=== PATIENT | female | born 1995 | race Caucasian/White ===

== ENCOUNTER 2019-01-06 02:02 | Emergency (ER) | payer BC ==
[~2019-01-06] VITALS: Ht 162.6 cm; Wt 53.5 kg
[~2019-01-06 02:02] MED LIST: FLEXERIL PO; MEDROLDOSEPACK PO; NORCO 5-325 TA1 EACH PO
[2019-01-06 02:30] VITALS: BP 121/68
== END 2019-01-06 03:41 | disposition home or self-care (01) ==
LOC: ER 02:02
DX: S50.02XA Contusion of left elbow, initial encounter (principal); G56.22 Lesion of ulnar nerve, left upper limb; W00.0XXA Fall on same level due to ice and snow, initial encounter; Y93.89 Activity, other specified; Y92.89 Other specified places as the place of occurrence of the external cause; Y99.8 Other external cause status